=== PATIENT | female | born 1990 | race Caucasian/White ===

== ENCOUNTER 2017-08-06 07:00 | Emergency (ER) | payer BC, OTHER ==
[~2017-08-06 07:00] MED LIST: BCPILLS PO; CALC500C3 PO; MULT-513 PO
[2017-08-06 07:05] VITALS: TEMP 36.6; Ht 167.6 cm
--- NOTE | 2017-08-06 07:56 | DIAGNOSTIC IMAGING REPORT ---
CHEST ONE VIEW PORTABLE HISTORY: Atypical chest pain. Short of breath. COMPARISON: None. FINDINGS: The lungs are clear. Cardiac silhouette is normal in size. No pleural effusions. No pneumothorax. IMPRESSION: No acute process. Electronically signed by: Florencio Alcantar M.D. 08/06/2017 7:55 AM Dictated Date/Time: 08/06/2017 7:47 AM
[2017-08-06 08:18] LABS: BASO % 0.5 %; BASO ABS # 0.02 K/uL (0-0.2); EOS % 1.8 %; EOS ABS # 0.07 K/uL (0-0.5); HEMATOCRIT 39.9 % (37-47); HEMOGLOBIN 13.3 g/dL (12.0-16.0); IG# 0.01 K/uL (0.00-0.02); LYMPH % 19.2 %; LYMPH ABS # 0.76 K/uL (1.2-3.4); MEAN CELL VOLUME 85.8 fL (80-100); MEAN CORPUSCULAR HEMOGLOBIN 28.6 pg (25-34); MEAN CORPUSCULAR HGB CONC 33.3 g/dl (32-36); MEAN PLATELET VOLUME 8.8 fL (7.4-10.4); MONO % 16.7 %; MONO ABS # 0.66 K/uL (0.11-0.59); NEUT % 61.5 %; NEUT ABS # 2.44 K/uL (1.4-6.5); PLATELET COUNT 273 K/uL (130-400); RED CELL DISTRIBUTION WIDTH CV 13.5 % (11.5-14.5); RED CELL DISTRIBUTION WIDTH SD 42.4 fL (36.4-46.3); WHITE BLOOD COUNT 3.96 K/uL (4.8-10.8)
[2017-08-06 08:25] LABS: PTT PATIENT 28.7 SECONDS (21.0-31.0)
[2017-08-06 08:33] LABS: ALBUMIN 3.4 gm/dl (3.4-5.0); ALT/SGPT 27 U/L (12-78); BLOOD UREA NITROGEN 8 mg/dl (7-18); CALCIUM 8.7 mg/dl (8.5-10.1); CARBON DIOXIDE 25 mmol/L (21-32); GLUCOSE 104 mg/dl (70-99); LIPASE 102 U/L (73-393); POTASSIUM 3.9 mmol/L (3.5-5.1); SODIUM 137 mmol/L (136-145)
[2017-08-06 08:38] LABS: ALKALINE PHOSPHATASE 100 U/L (45-117); AST/SGOT 18 U/L (15-37); CKMB < 0.5 ng/ml (0.5-3.6); TOTAL PROTEIN 7.4 gm/dl (6.4-8.2)
[2017-08-06] MEDS ORDERED: SODIUM CHLORIDE 0.9% 1000ML 500 ML IV STA (08:38)
[2017-08-06] MEDS ORDERED: FLUO20CA35 PO (08:45)
[2017-08-06] MEDS ORDERED: CLON0.5T3 PO (08:45)
[2017-08-06] MEDS ORDERED: OPTIRAY 320 IV PRN (09:00)
--- NOTE | 2017-08-06 09:30 | DIAGNOSTIC IMAGING REPORT ---
(CHEST FOR PE) ANGIO WITH CT DOSE: 657.79 mGy.cm HISTORY: Chest pain dyspnea TECHNIQUE: Multiaxial CT images of the chest were performed following the intravenous administration of contrast to evaluate the pulmonary arteries. Maximal intensity projection images were also obtained. A dose lowering technique was utilized adhering to the principles of ALARA. COMPARISON STUDY: None. FINDINGS: There is a normal caliber thoracic aorta with no evidence for dissection. There is no evidence for pulmonary embolus. No pleural effusions. No pneumothorax. The liver and spleen are unremarkable. No mediastinal or hilar lymphadenopathy. The central airways are patent. The lungs are clear. IMPRESSION: No evidence for pulmonary embolus. Lungs are clear. Note is made of slight thickening of the esophageal wall throughout the chest. The above report was generated using voice recognition software. It may contain grammatical, syntax or spelling errors. Electronically signed by: Wiliam Gustafson M.D. 08/06/2017 9:28 AM Dictated Date/Time: 08/06/2017 9:22 AM
--- NOTE | 2017-08-06 09:52 | EMERGENCY ROOM VISIT NOTE ---
History First contact with patient: 07:09 Chief Complaint: CHEST PAIN Stated Complaint: CHEST PAIN,NAUSEA,HOT/COLD FLASHES,ABD PAIN Nursing Triage Summary: Patient here with cough/congestion x a few days with chest discomfort 5/10 this AM. Denies fever or vomitting. History of Present Illness Patient is a 26-year-old white female with past medical history significant for GERD, depression, anxiety and panic disorder who presents the emergency department accompanied by male mannequin maker for evaluation of chest pain that started acutely roughly 1 hour ago. Patient relates that she has been experiencing some minor upper respiratory symptoms over the last couple of days including congestion, cough, stuffy runny nose and sore throat. No fever. She has been using [id number] medications for her symptoms. She states that she woke up this morning early to watch some television before she had to study for an exam. She states that she was sitting on the couch in her living room, when she began to experience a pressure/stabbing pain in her left chest. She noted some associated nausea and upper abdominal discomfort. She thought that this might be anxiety, and therefore tried to breathe through her symptoms, but the symptoms are not improving, therefore she came to the emergency department. In all, she was having symptoms for about 45 minutes at home, and subsequently upon arrival here they have begun to subside. It is where she would have rated her pain an 8/10, she presently now rates it a 5/10. The nausea and the upper abdominal discomfort have resolved. She does report some minor shortness of breath with the pain. It is not worse with deep breathing. She did not try taking any medications for her symptoms this morning. She states that she experienced a similar episode last semester and was seen at the [facility] walk-in clinic, at which point they thought her symptoms were related to anxiety and placed her on Klonopin. She has been trying not to use this due to its addictive properties. She had follow-up with her PCP and was placed on Prozac. She states that this incident is worse than the episode last semester. She is no longer on any oral contraceptives, she has an IUD device. She denies any extended travel or prolonged immobilization. Review of Systems Review of systems as per HPI. All other systems reviewed were negative. 10 systems reviewed. Past Medical/Surgical History Medical Problems: (1) Anxiety (2) Depression (3) GERD (gastroesophageal reflux disease) (4) Headache (5) Panic disorder (6) Visual aura (7) Visual aura Surgical Problems: (1) History of breast biopsy Electronic medical records are reviewed and summarized as above/below. See Problem List. Social History Smoking Status: Never Smoker Alcohol Use: occasionally Drug Use: marijuana Marital Status: in relationship Housing Status: lives with significant other Occupation Status: [employer] student Current/Historical Medications Scheduled Control Pills ( Control Pills), 1 TAB PO DAILY Clonazepam (Klonopin), 0.5 MG PO PRN Scheduled PRN Calcium Carbonate (Tums), 1,000-1,500 MG PO BID PRN for Dyspepsia Miscellaneous Medications Fluoxetine (Prozac), 20 MG PO Physical Exam Vital Signs Date Time Temp Pulse Resp B/P (MAP) Pulse Ox O2 Delivery O2 Flow Rate FiO2 08/06/17 10:55 98 18 132/79 98 08/06/17 09:02 90 20 129/82 100 Room Air 08/06/17 07:22 89 08/06/17 07:05 36.6 97 20 135/86 97 Room Air Physical Exam CONSTITUTIONAL: Patient is obese 26-year-old white female who is awake and alert and in no acute distress. Vital signs are stable. She is seated upright on the gurney in no acute distress. No conversational dyspnea noted. EYES: Pupils equal, round, reactive to light and accommodation. EOMs intact without nystagmus. Sclera are anicteric. ENT: Tympanic membranes intact, with normal landmarks. External canals are clear. Oral and nasopharynx are clear. Mucous membranes are moist, no lesions , tongue and gums appear normal. NECK: No bruits auscultated. Supple without lymphadenopathy. No thyromegaly. No meningeal signs. Full active range of motion without discomfort. CARDIOVASCULAR: Regular rate and rhythm, with normal S1 and S2, no murmur or gallop or rub is heard. No carotid bruits auscultated. No JVD. Peripheral pulses easy to palpable. RESPIRATORY: Breath sounds equal and clear to auscultation without wheezes, rales, or rhonchi heard. Full and equal chest expansion without accessory muscle use or retractions. GI: Bowel sounds are present. Abdomen is soft, nontender, nondistended. No organomegaly. No pulsatile masses. No guarding or rebound. MUSCULOSKELETAL: Full range of motion of extremities x 4 with good strength. No cyanosis, edema, joint tenderness or swelling. No deformity. INTEGUMENTARY: No lesions or rash, normal skin turgor. NEUROLOGICAL: Alert, oriented, and cooperative. Cranial nerves, sensation and strength grossly intact. Pupils round, equal, and react to light, EOMs are full. LYMPH: No lymphadenopathy. Medical Decision & Procedures ER Provider Diagnostic Interpretation: CHEST ONE VIEW PORTABLE HISTORY: Atypical chest pain. Short of breath. COMPARISON: None. FINDINGS: The lungs are clear. Cardiac silhouette is normal in size. No pleural effusions. No pneumothorax. IMPRESSION: No acute process. (CHEST FOR PE) ANGIO WITH CT DOSE: 657.79 mGy.cm HISTORY: Chest pain dyspnea TECHNIQUE: Multiaxial CT images of the chest were performed following the intravenous administration of contrast to evaluate the pulmonary arteries. Maximal intensity projection images were also obtained. A dose lowering technique was utilized adhering to the principles of ALARA. COMPARISON STUDY: None. FINDINGS: There is a normal caliber thoracic aorta with no evidence for dissection. There is no evidence for pulmonary embolus. No pleural effusions. No pneumothorax. The liver and spleen are unremarkable. No mediastinal or hilar lymphadenopathy. The central airways are patent. The lungs are clear. IMPRESSION: No evidence for pulmonary embolus. Lungs are clear. Note is made of slight thickening of the esophageal wall throughout the chest. Laboratory Results 08/06/17 08:00 Red Blood Count 4.65, Mean Corpuscular Volume 85.8, Mean Corpuscular Hemoglobin 28.6, Mean Corpuscular Hemoglobin Concent 33.3, Mean Platelet Volume 8.8, Neutrophils (%) (Auto) 61.5, Lymphocytes (%) (Auto) 19.2, Monocytes (%) (Auto) 16.7, Eosinophils (%) (Auto) 1.8, Basophils (%) (Auto) 0.5, Neutrophils # (Auto ) 2.44, Lymphocytes # (Auto) 0.76, Monocytes # (Auto) 0.66, Eosinophils # (Auto ) 0.07, Basophils # (Auto) 0.02 08/06/17 08:00 Test 08/06/17 08:00 08/06/17 08:06 08/06/17 08:30 White Blood Count 3.96 K/uL (4.8-10.8) Red Blood Count 4.65 M/uL (4.2-5.4) Hemoglobin 13.3 g/dL (12.0-16.0) Hematocrit 39.9 % (37-47) Mean Corpuscular Volume 85.8 fL (80-100) Mean Corpuscular Hemoglobin 28.6 pg (25-34) Mean Corpuscular Hemoglobin Concent 33.3 g/dl (32-36) Platelet Count 273 K/uL (130-400) Mean Platelet Volume 8.8 fL (7.4-10.4) Neutrophils (%) (Auto) 61.5 % Lymphocytes (%) (Auto) 19.2 % Monocytes (%) (Auto) 16.7 % Eosinophils (%) (Auto) 1.8 % Basophils (%) (Auto) 0.5 % Neutrophils # (Auto) 2.44 K/uL (1.4-6.5) Lymphocytes # (Auto) 0.76 K/uL (1.2-3.4) Monocytes # (Auto) 0.66 K/uL (0.11-0.59) Eosinophils # (Auto) 0.07 K/uL (0-0.5) Basophils # (Auto) 0.02 K/uL (0-0.2) RDW Standard Deviation 42.4 fL (36.4-46.3) RDW Coefficient of Variation 13.5 % (11.5-14.5) Immature Granulocyte % (Auto) 0.3 % Immature Granulocyte # (Auto) 0.01 K/uL (0.00-0.02) Prothrombin Time 10.0 SECONDS (9.0-12.0) Prothromb Time International Ratio 1.0 (0.9-1.1) Activated Partial Thromboplast Time 28.7 SECONDS (21.0-31.0) Partial Thromboplastin Ratio 1.1 Anion Gap 7.0 mmol/L (3-11) Estimated GFR () 118.8 Estimated GFR (Non- 102.5 BUN/Creatinine Ratio 10.0 (10-20) Calcium Level 8.7 mg/dl (8.5-10.1) Total Bilirubin 0.3 mg/dl (0.2-1) Aspartate Amino Transf (AST/SGOT) 18 U/L (15-37) Alanine Aminotransferase (ALT/SGPT) 27 U/L (12-78) Alkaline Phosphatase 100 U/L (45-117) Total Creatine Kinase 49 U/L (26-192) Creatine Kinase MB < 0.5 ng/ml (0.5-3.6) Creatine Kinase MB Ratio (0-3.0) Total Protein 7.4 gm/dl (6.4-8.2) Albumin 3.4 gm/dl (3.4-5.0) Globulin 4.0 gm/dl (2.5-4.0) Albumin/Globulin Ratio 0.9 (0.9-2) Lipase 102 U/L (73-393) Bedside D-Dimer > 450 ng/mlFEU (0-450) Bedside Troponin I < 0.030 ng/ml (0-0.045) Urine Test NEG (NEG) Medications Administered Medications (Trade) Dose Ordered Sig/Shimon Route Start Time Stop Time Status Last Admin Dose Admin Sodium Chloride 500 ml @ 999 mls/hr Q31M STAT IV 08/06/17 08:38 08/06/17 09:08 DC 08/06/17 09:02 999 MLS/HR ECG Per My Interpretation Indication: chest pain Rate (beats per minute): 81 Rhythm: normal sinus Findings: no acute ischemic change, no ectopy Comparison ECG Date: no prior available ED Course The patient was seen and evaluated as above. Her old records were reviewed. IV lock was initiated, EKG was performed and laboratory studies were collected. She was placed on a director cardiac and observed throughout her emergency department stay. She was offered, but declined any medication for her symptoms upon arrival in the emergency department. EKG was as noted above, without any acute ischemic changes, ectopy or interval prolongation. CBC with differential , coags, CMP, cardiac enzymes, lipase, urine dip and and a point-of- care troponin were collected. Chest x-ray was obtained and was unremarkable, findings are as noted above. Laboratory studies noted a white count of 3900, no left shift or bandemia. H&H is normal. Platelets and coags are unremarkable. Electrolytes and renal functions are without significant abnormality. Cardiac enzymes are negative 1. Troponin is normal. Lipase is not elevated. Urine dip was clear and test was unremarkable. The patient's [id number] d-dimer was elevated, therefore chest CT was obtained. There is no evidence for consolidation, pneumothorax or pleural effusion. Laboratory and diagnostic imaging studies were reviewed with attending physician , and discussed with the patient. Differential diagnosis includes acute myocardial infarction, acute coronary syndrome, myocarditis, pericarditis, pulmonary embolism, pneumonia, pneumothorax, anemia, asthma exacerbation, musculoskeletal, anxiety, costochondritis, among others. I discussed with the patient that her symptoms may be anxiety or panic related. It was felt that she could be safely discharged home with follow-up with her PCP. She expressed understanding of this and was agreeable. Certainly if her symptoms return or worsen she is welcome to return to the emergency department for further care and evaluation. She is discharged home with her male mannequin maker in stable condition. Medical Decision See emergency department course. Medication Reconcilliation Current Medication List: was personally reviewed by me Blood Pressure Screening Patient's blood pressure: Normal blood pressure Blood pressure disposition: Did not require urgent referral Impression Primary Impression: Left sided chest pain Departure Information Referrals Phillip Hancock, DO (PCP) Patient Instructions My [facility] Additional Instructions Acetaminophen(Tylenol) may be used for fever or pain. Use 1000mg every eight hours as needed. Avoid using more than 3000mg in a 24 hour period. This is available over the counter. Rest and drink plenty of fluids as tolerated. Continue current medications. Avoid strenuous activities and anything that worsens your pain. Resume normal activities once your symptoms resolve. Return to the ER immediately for worsening or persistent chest pain, abdominal pain, vomiting, fevers, chest pains, difficulty breathing, worsening of your condition , or as needed. Follow up with your primary physician in 2-3 days for a recheck of your current condition.
[2017-08-06 10:55] VITALS: BP 132/79; PULSE 98; O2SAT 98
== END 2017-08-06 10:59 | disposition home or self-care (01) ==
LOC: C.EDB 07:01 → C.EDA 10:59
DX: R07.9 Chest pain, unspecified (principal); F32.9 Major depressive disorder, single episode, unspecified; F41.0 Panic disorder [episodic paroxysmal anxiety]; F12.10 Cannabis abuse, uncomplicated; Z79.3 Long term (current) use of hormonal contraceptives